=== PATIENT | female | born 1975 | race Caucasian/White ===

== ENCOUNTER 2019-04-26 19:31 | Emergency (ER) | payer OTHER ==
[~2019-04-26] VITALS: Ht 165.1 cm; Wt 68.5 kg
[2019-04-26 19:35] VITALS: Ht 165.1 cm; Wt 68.5 kg
[2019-04-26 20:26] VITALS: BP 112/69
== END 2019-04-26 20:26 | disposition home or self-care (01) ==
LOC: ED 19:31
DX: S52.125A Nondisplaced fracture of head of left radius, initial encounter for closed fracture (principal); W11.XXXA Fall on and from ladder, initial encounter; Y93.89 Activity, other specified; Y92.89 Other specified places as the place of occurrence of the external cause; Y99.8 Other external cause status
CPT/HCPCS: Q0092